=== PATIENT | male | born 1940 | race Caucasian/White ===

== ENCOUNTER 2017-08-06 21:09 | Emergency (ER) | payer OTHER ==
[~2017-08-06] VITALS: Ht 188 cm; Wt 131.5 kg
--- NOTE | 2017-08-06 22:39 | ED EYE COMPLAINT ---
History of Present Illness General Chief Complaint: Eye Problems Stated Complaint: "SOMETHING IN L EYE" PER PT Source: patient Exam Limitations: no limitations Vital Signs & Intake/Output Vital Signs & Intake/Output Vital Signs Date Time Temp Pulse Resp B/P B/P Pulse O2 O2 Flow FiO2 Mean Ox Delivery Rate 08/06 2342 98.8 62 18 154/86 99 Room Air 08/06 2114 97.3 64 18 164/84 98 Room Air ED Intake and Output 08/07 0000 08/06 1200 Intake Total Output Total Balance Patient 290 lb Weight Allergies Coded Allergies: No Known Allergies (08/06/17) Reconcile Medications Erythromycin Base (Erythromycin) 5 MG/GRAM (0.5 %) OINT...G. 1 EULOGIO OPH 4XDP PRN BLEPHARITIS apply 1 cm ribbon into the lower conjunctival sac Triage Note: PT TO TRIAGE STATING "SOMETHING IN MY LEFT EYE FOR A COUPLE HOURS NOW." PT TRIED FLUSHING IT OUT BUT WAS UNSUCCESSFUL. EYE WITH +REDNESS, DENIES BLURRY VISION. Triage Nurses Notes Reviewed? yes Onset: Abrupt Duration: constant Timing: single episode today Injury Environment: home Severity: mild Severity Numbers: 3 HPI: Patient is a 76-year-old male who presents emergency room with concerns of sitting at home at rest and having acute onset of a foreign body sensation to the left upper eyelid. Patient denies any trauma denies any mechanism injury or rubbing his eyes denies any contact lens wear. Denies any photophobia blurred vision or discharge. Denies any eyeball pain (Garrett Vasquez) Past History Travel History Traveled to [place] past 21 day No Medical History Any Pertinent Medical History? 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 No (Garrett Vasquez) Review of Systems Review of Systems Constitutional: Reports: no symptoms. Eyes: Reports: see HPI, foreign body sensation. Denies: blurred vision, drainage, decreased acuity, inflammation, pain, photophobia. Ear: Reports: no symptoms. Nose: Reports: no symptoms. Mouth: Reports: no symptoms. Throat: Reports: no symptoms. Respiratory: Reports: no symptoms. Cardiovascular: Reports: no symptoms. GI: Reports: no symptoms. Genitourinary: Reports: no symptoms. Musculoskeletal: Reports: no symptoms. Skin: Reports: no symptoms. Neurological/Psychological: Reports: no symptoms. Hematologic/Endocrine: Reports: no symptoms. Immunologic/Allergic: Reports: no symptoms. All Other Systems: Reviewed and Negative (Garrett Vasquez) Physical Exam General Appearance: well developed/nourished, no apparent distress, alert General Inspection: normal inspection Eyelid: everted for exam, erythema Conjunctiva/Sclera: scleral icterus (MILD LATERAL ) Cornea: normal inspection, examined w/fluorescein EOM: intact Pupil: normal accommodation, normal pupil, PERRL Anterior Chamber: normal inspection General Inspection: normal inspection Eyelid: normal inspection Conjunctiva/Sclera: normal inspection Cornea: normal inspection EOM: intact Pupil: normal accommodation, normal pupil, PERRL Anterior Chamber: normal inspection Physical Exam Head: atraumatic Nose: normal inspection Mouth/Throat: pharynx normal Neck: normal inspection Cardiovascular/Respiratory: no respiratory distress Skin: intact, normal color, warm/dry (Garrett Vasquez) Progress Differential Diagnosis: corneal abrasion, corneal foreign body, conjunctivitis, detached retina, glaucoma, globe rupture, retinal art./v. occlusion Plan of Care: Patient on initial presentation had mild lateral scleral injection of the left eye and upper eyelid erythema however no stye was noted no foreign body was noted on physical exam patient was PERRLA extraocular muscles intact, FLUOROSCEINE staining was performed after drops of tetracaine to the left eye no uptake noted I then irrigated the eye with Bausch and Lomb eye irrigation After I irrigated patient's left eye he had complete resolution of foreign body sensation. 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 Parikh, begin the prescription of erythromycin ointment as directed. If symptoms worsen or IF YOU develop any new concerning symptom return to emergency room Prescriptions waiting a [facility] Departure Forms: Customer Survey General Discharge Information Prescriptions: Current Visit Scripts Erythromycin Base (Erythromycin) 1 EULOGIO OPH 4XDP PRN BLEPHARITIS #3.5 GM apply 1 cm ribbon into the lower conjunctival sac (Garrett Vasquez) PA/JUNIOR ACCOUNT EXECUTIVE Co-Sign Statement Statement: ED Attending supervision documentation- I saw and evaluated the patient. I have also reviewed all the pertinent lab results and diagnostic results. I agree with the findings and the plan of care as documented in the PA's/JUNIOR ACCOUNT EXECUTIVE's documentation. x I have reviewed the ED Record and agree with the PA's/JUNIOR ACCOUNT EXECUTIVE's documentation. [] Additions or exceptions (if any) to the PAs/JUNIOR ACCOUNT EXECUTIVE's note and plan are summarized below: [] (Joana MONTALVO,Oral)
[2017-08-06] MEDS ORDERED: ERYTHROMYCIN1 GM OPH (23:36)
[2017-08-06 23:42] VITALS: BP 154/86
== END 2017-08-06 23:42 ==
LOC: ERH 21:09
DX: T15.92XA Foreign body on external eye, part unspecified, left eye, initial encounter (principal); H01.004 Unspecified blepharitis left upper eyelid